=== PATIENT | male | born 1985 | race Caucasian/White ===

== ENCOUNTER 2017-06-09 17:04 | Emergency (ER) | payer SELFPAY ==
[~2017-06-09] VITALS: Ht 182.9 cm; Wt 90.0 kg
[~2017-06-09 17:04] MED LIST: DICL-86 PO; Z.0.NO CURRENT MEDS
[2017-06-09 17:06] VITALS: BP 137/91; PULSE 96; RESP 16; TEMP 98.4; O2SAT 98
[2017-06-09 20:31] LABS: AUTOMATED NEUTROPHIL # 4.3 TH/MM3 (1.8-7.7); BASOPHIL # 0.1 TH/MM3 (0-0.2); BASOPHIL % 0.9 % (0.0-2.0); EOSINOPHIL # 0.4 TH/MM3 (0-0.4); EOSINOPHIL % 6.2 % (0.0-4.0); HEMO FLAGS DIFF FINAL; LYMPH % 22.9 % (9.0-44.0); LYMPHOCYTE # 1.5 TH/MM3 (1.0-4.8); MEAN CELL VOLUME 91.4 FL (80.0-100.0); MEAN CORPUSCULAR HEMOGLOBIN 30.2 PG (27.0-34.0); MONO % 6.9 % (0.0-8.0); NEUT % 63.1 % (16.0-70.0); PLATELET COUNT 190 TH/MM3 (150-450); RED BLOOD COUNT 4.71 MIL/MM3 (4.50-5.90); RED CELL DISTRIBUTION WIDTH 13.7 % (11.6-17.2); WHITE BLOOD COUNT 6.7 TH/MM3 (4.0-11.0)
[2017-06-09 20:48] LABS: ALT (GPT) 43 U/L (12-78)
[2017-06-09 20:51] LABS: ALKALINE PHOSPHATASE 65 U/L (45-117); TOTAL BILIRUBIN ADULT 0.4 MG/DL (0.2-1.0)
[2017-06-09 20:52] LABS: ANION GAP 9 MEQ/L (5-15); AST (GOT) 31 U/L (15-37); BICARBONATE 25.4 MEQ/L (21.0-32.0); BLOOD UREA NITROGEN 13 MG/DL (7-18); CHLORIDE 108 MEQ/L (98-107); GLOMERULAR FILTRATION RATE 85 ML/MIN (>89); POTASSIUM 4.1 MEQ/L (3.5-5.1); SODIUM (NA) 142 MEQ/L (136-145)
[2017-06-09 20:55] LABS: ACETAMINOPHEN LESS THAN 2.0 MCG/ML (10.0-30.0); ALCOHOL LESS THAN 3 MG/DL (0-5)
--- NOTE | 2017-06-09 21:10 | PD ---
HPI Chief Complaint: Suicide Ideation/Attempt Time Seen by Provider: 20:46 Travel History International Travel<30 days: No Contact w/Intl Traveler<30days: No Traveled to known affect area: No History of Present Illness HPI 32-year-old male presents to the emergency Department voluntarily for psychiatric evaluation. Patient states that he's been feeling suicidal. He states that he attempted to kill himself by huffing a can of dust spray today. He states he did this around 3:30 this afternoon. Patient reports using marijuana, but does report a history of illicit drug use. He states he has never injected drugs. He states that his life is not going well with issues with his job and he is feeling depressed and suicidal. Patient denies any other medical history. He is not currently taking any prescribed medications. No other complaints. PFSH Past Medical History Autoimmune Disease: Yes Hiatal Hernia: Yes (BILAT SURG AN ) Integumentary: Yes (PSORIASIS) Social History Alcohol Use: Yes Tobacco Use: Yes Substance Use: Yes (POLYSUBSTANCE) Allergies-Medications (Allergen,Severity, Reaction): Coded Allergies: No Known Allergies (Verified , 06/09/17) Reported Meds & Prescriptions Reported Meds & Active Scripts Active Voltaren (Diclofenac Sodium) 75 Mg Tabec 75 Mg PO BID Reported No Current Meds (Miscellaneous Medication) Misc Review of Systems Except as stated in HPI: all other systems reviewed are Neg Physical Exam Narrative GENERAL: Well-nourished, well-developed male patient, ambulatory. Afebrile. SKIN: Focused skin assessment warm/dry. HEAD: Normocephalic. Atraumatic. EYES: No scleral icterus. No injection or drainage. NECK: Supple, trachea midline. No JVD or lymphadenopathy. CARDIOVASCULAR: Regular rate and rhythm without murmurs, gallops, or rubs. RESPIRATORY: Breath sounds equal bilaterally. No accessory muscle use. Lungs sounds are clear to auscultation. GASTROINTESTINAL: Abdomen soft, non-tender, nondistended. MUSCULOSKELETAL: No cyanosis, or edema. PSYCHIATRIC: No delusional thought processes. No hallucinations. Data Data Last Documented VS Vital Signs Date Time Temp Pulse Resp B/P (MAP) Pulse Ox O2 Delivery O2 Flow Rate FiO2 06/09/17 21:51 56 18 118/71 (87) Room Air 06/09/17 17:06 98.4 98 Orders Orders Complete Blood Count With Diff (06/09/17 19:51) Comprehensive Metabolic Panel (06/09/17 19:51) Urinalysis - C+S If Indicated (06/09/17 19:51) Psych Screen (06/09/17 19:51) Drug Screen, Random Urine (06/09/17 19:51) Alcohol (Ethanol) (06/09/17 19:51) Salicylates (Aspirin) (06/09/17 19:51) Tylenol (Acetaminophen) (06/09/17 19:51) Call Poison Control (06/09/17 21:06) Electrocardiogram (06/09/17 ) Electrocardiogram (06/10/17 02:00) Labs Laboratory Tests Test 06/09/17 20:05 White Blood Count 6.7 TH/MM3 Red Blood Count 4.71 MIL/MM3 Hemoglobin 14.2 GM/DL Hematocrit 43.0 % Mean Corpuscular Volume 91.4 FL Mean Corpuscular Hemoglobin 30.2 PG Mean Corpuscular Hemoglobin Concent 33.0 % Red Cell Distribution Width 13.7 % Platelet Count 190 TH/MM3 Mean Platelet Volume 8.4 FL Neutrophils (%) (Auto) 63.1 % Lymphocytes (%) (Auto) 22.9 % Monocytes (%) (Auto) 6.9 % Eosinophils (%) (Auto) 6.2 % Basophils (%) (Auto) 0.9 % Neutrophils # (Auto) 4.3 TH/MM3 Lymphocytes # (Auto) 1.5 TH/MM3 Monocytes # (Auto) 0.5 TH/MM3 Eosinophils # (Auto) 0.4 TH/MM3 Basophils # (Auto) 0.1 TH/MM3 CBC Comment DIFF FINAL Differential Comment Blood Urea Nitrogen 13 MG/DL Creatinine 1.01 MG/DL Random Glucose 119 MG/DL Total Protein 6.7 GM/DL Albumin 3.6 GM/DL Calcium Level 8.7 MG/DL Alkaline Phosphatase 65 U/L Aspartate Amino Transf (AST/SGOT) 31 U/L Alanine Aminotransferase (ALT/SGPT) 43 U/L Total Bilirubin 0.4 MG/DL Sodium Level 142 MEQ/L Potassium Level 4.1 MEQ/L Chloride Level 108 MEQ/L Carbon Dioxide Level 25.4 MEQ/L Anion Gap 9 MEQ/L Estimat Glomerular Filtration Rate 85 ML/MIN Salicylates Level LESS THAN 1.7 MG/DL Acetaminophen Level LESS THAN 2.0 MCG/ML Ethyl Alcohol Level LESS THAN 3 MG/DL MDM Medical Decision Making Medical Screen Exam Complete: Yes Emergency Medical Condition: Yes Medical Record Reviewed: Yes Differential Diagnosis depression versus anxiety versus suicidal ideation versus polysubstance abuse Narrative Course 32-year-old male presents to the emergency department for evaluation of feeling suicidal and depressed. He states that he huffed a can of dust spray today in an attempt to kill himself. He denies any other attempt to hurt himself. I talked to the RN take care of the patient and she will contact poison control. CBC, CMP, salicylate level, Tylenol level, urine drug screen are ordered and pending. CBC is unremarkable. CMP shows no acute abnormality. Salicylate level is less than 1.7. Tylenol level less than 2.0. Alcohol level is less than 3. Poison control was notified and recommended observation for 8 hours should have an ingestion which would be 11:30 tonight. They also recommended EKG now and EKG in 4 hours. Orders are placed. EKG shows sinus rhythm with first-degree AV block, heart rate 60, no acute ST changes. Repeat EKG will be done at 0200. Upon no acute abnormalities, the patient will be medically cleared for psychiatric screening and disposition. Mental health screening discussed with the patient. Psychiatric screen ordered. Diagnosis Primary Impression: Depression Qualified Codes: F32.9 - Major depressive disorder, single episode, unspecified Additional Impression: Suicidal ideation Additional Instructions: Patient is medically cleared for psychiatric screening and disposition. Condition: Stable WilverCecilia Jun 09, 2017 21:10
[2017-06-09 21:51] VITALS: BP 118/71; PULSE 56; RESP 18
[2017-06-10 02:24] VITALS: BP_SYST 11; BP_SYST 111; BP_DIAS 76; PULSE 57; RESP 17; O2SAT 97
[2017-06-10 11:01] VITALS: BP 155/108; PULSE 68; RESP 18; O2SAT 98
--- NOTE | 2017-06-10 12:04 | PD ---
History of Present Illness Chief Complaint: Suicide Ideation/Attempt Time Seen by Provider: 11:44 Travel History International Travel<30 Days: No Contact w/Intl Traveler<30days: No Known affected area: No Legal Status Legal Status: Voluntary History of Present Illness: 32-year-old male with 17 year history of polysubstance abuse. Patient reports he made a suicide attempt by huffing yesterday. He has been evaluated and observed overnight. At this time, the patient is stating he wants help with his drug abuse. He admits to a multiyear history of abusing ecstasy, cocaine, acid, and other illicit drugs. When asked about his suicidal ideation or plan at this time, the patient states he wants help with his drug abuse and does not truly wish to . He does consider his huffing yesterday to be a suicide attempt. Patient's problems with his job and in other areas of his life appear to be related to his drug abuse. This physician feels there is not a major mental illness diagnosis that supersedes the patient's problem with drugs. PFSH Past Medical History Autoimmune Disease: Yes Hiatal Hernia: Yes (BILAT SURG AN ) Integumentary: Yes (PSORIASIS) Psychiatric History Psychiatric History Hx Psychiatric Treatment: NO PREVIOUS TREATMENT. History of Inpatient Treatment: No Guns or firearms in home: No Social History Hx Alcohol Use: Yes Hx Tobacco Use: Yes Hx Substance Use: Yes (POLYSUBSTANCE) Substance Use Type: Marijuana, Amphetamines-Stimulants, Prescription Medications, Huffing, Synth Opiates-Pain Pills Hx of Substance Use Treatment: No Allergies-Medications (Allergen,Severity, Reaction): Coded Allergies: No Known Allergies (Verified , 06/09/17) Reported Meds & Prescriptions Reported Meds & Active Scripts Active Voltaren (Diclofenac Sodium) 75 Mg Tabec 75 Mg PO BID Reported No Current Meds (Miscellaneous Medication) Misc Review of Systems Except as stated in HPI: all other systems reviewed are Neg Exam Alert: Yes [facility]: Person, Place, Date, Situation Mood: Calm Affect: Appropriate Speech: Clear, Logical Eye Contact: Normal Memory Intact: Immediate, Recent, Remote Suicidal: Ideation Insight/Judgement Adequate MDM Medical Decision Making Medical Record Reviewed: Yes Assessment/Plan Medical record reviewed, patient interviewed at bedside and case discussed with nurse Scales. Patient is felt to be at high risk for self-harm but continues to have a primary problem with drugs as opposed to any other psychiatric disorder. This physician has placed a call to psychiatry and chapter relations administrator Nitesh Santana for further discussion. This physician also called the medical device sales representative, Dr. Schultz for consultation. Both this physician and Dr. Schultz feel the patient's primary issue remains his drug abuse. The fact that the patient wants help with his drug abuse indicates he is not primarily suffering from suicidality or some other major mental illness. Therefore, the patient is being referred, with transportation, to [facility]. As this facility is not licensed for drug detox and rehabilitation, [facility] remains the proper treatment facility. Furthermore, the patient has a much better chance of being admitted there if he goes there and presents himself and person. This physician is aware the patient remains at high risk for self-harm if he does not feel he is getting what he wants. However, this risk is unavoidable and unpredictable and unpredictable and cannot be the only determining factor in his disposition. Orders Orders Complete Blood Count With Diff (06/09/17 19:51) Comprehensive Metabolic Panel (06/09/17 19:51) Urinalysis - C+S If Indicated (06/09/17 19:51) Psych Screen (06/09/17 19:51) Drug Screen, Random Urine (06/09/17 19:51) Alcohol (Ethanol) (06/09/17 19:51) Salicylates (Aspirin) (06/09/17 19:51) Tylenol (Acetaminophen) (06/09/17 19:51) Call Poison Control (06/09/17 21:06) Electrocardiogram (06/09/17 ) Electrocardiogram (06/10/17 02:00) Diet Regular Basic (06/10/17 Breakfast) Diet Regular Basic (06/10/17 Lunch) Results Vital Signs Date Time Temp Pulse Resp B/P (MAP) Pulse Ox O2 Delivery O2 Flow Rate FiO2 06/10/17 11:01 68 18 155/108 (124) 98 Room Air 06/10/17 02:24 57 17 111/76 (88) 97 Room Air 06/09/17 21:51 56 18 118/71 (87) Room Air 06/09/17 17:06 98.4 96 16 137/91 (106) 98 Laboratory Tests Test 06/09/17 20:05 White Blood Count 6.7 Red Blood Count 4.71 Hemoglobin 14.2 Hematocrit 43.0 Mean Corpuscular Volume 91.4 Mean Corpuscular Hemoglobin 30.2 Mean Corpuscular Hemoglobin Concent 33.0 Red Cell Distribution Width 13.7 Platelet Count 190 Mean Platelet Volume 8.4 Neutrophils (%) (Auto) 63.1 Lymphocytes (%) (Auto) 22.9 Monocytes (%) (Auto) 6.9 Eosinophils (%) (Auto) 6.2 Basophils (%) (Auto) 0.9 Neutrophils # (Auto) 4.3 Lymphocytes # (Auto) 1.5 Monocytes # (Auto) 0.5 Eosinophils # (Auto) 0.4 Basophils # (Auto) 0.1 CBC Comment DIFF FINAL Differential Comment Blood Urea Nitrogen 13 Creatinine 1.01 Random Glucose 119 Total Protein 6.7 Albumin 3.6 Calcium Level 8.7 Alkaline Phosphatase 65 Aspartate Amino Transf (AST/SGOT) 31 Alanine Aminotransferase (ALT/SGPT) 43 Total Bilirubin 0.4 Sodium Level 142 Potassium Level 4.1 Chloride Level 108 Carbon Dioxide Level 25.4 Anion Gap 9 Estimat Glomerular Filtration Rate 85 Salicylates Level LESS THAN 1.7 Acetaminophen Level LESS THAN 2.0 Ethyl Alcohol Level LESS THAN 3 Diagnosis Primary Impression: Polysubstance abuse Additional Instructions: Patient is medically cleared for psychiatric screening and disposition. Condition: Stable Dmitri Miner MD Jun 10, 2017 12:04
--- NOTE | 2017-06-10 21:19 | EKG ---
Date Performed: 06/10/2017 Time Performed: 02:16:58 PTAGE: 32 years EKG: SINUS BRADYCARDIA WITH FIRST DEGREE AV BLOCK POSSIBLE LEFT ATRIAL ENLARGEMENT ABNORMAL ECG PREVIOUS TRACING : 06/09/2017 21.58 Compared to prior tracing no significant change DOCTOR: Arturo Quintero Interpretating Date/Time 06/10/2017 21:18:06
--- NOTE | 2017-06-10 21:29 | EKG ---
Date Performed: 06/09/2017 Time Performed: 21:58:10 PTAGE: 32 years EKG: Sinus rhythm WITH MARKED SINUS ARRHYTHMIA WITH FIRST DEGREE AV BLOCK ABNORMAL ECG NO PREVIOUS TRACING DOCTOR: Arturo Quintero Interpretating Date/Time 06/10/2017 21:27:35
== END 2017-06-10 16:11 | disposition home or self-care (01) ==
LOC: NEPJ 17:04
DX: F32.9 Major depressive disorder, single episode, unspecified (principal); R45.851 Suicidal ideations; F19.10 Other psychoactive substance abuse, uncomplicated; I44.0 Atrioventricular block, first degree
CPT/HCPCS: 80053; 80307; 85025; 93005; 99284

== ENCOUNTER 2017-06-10 21:12 | Emergency (ER) | payer OTHER ==
[~2017-06-10] VITALS: Ht 180.3 cm; Wt 91.0 kg
[2017-06-10 21:52] VITALS: BP 143/83; PULSE 81; RESP 16; TEMP 98; O2SAT 98
[2017-06-10 22:25] LABS: ANION GAP 9 MEQ/L (5-15); AST (GOT) 24 U/L (15-37); BICARBONATE 24.2 MEQ/L (21.0-32.0); BLOOD UREA NITROGEN 14 MG/DL (7-18); CHLORIDE 108 MEQ/L (98-107); GLOMERULAR FILTRATION RATE 69 ML/MIN (>89); POTASSIUM 3.7 MEQ/L (3.5-5.1); SODIUM (NA) 141 MEQ/L (136-145)
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
[2017-06-10 22:26] LABS: ALCOHOL LESS THAN 3 MG/DL (0-5)
[2017-06-10 22:29] LABS: ALKALINE PHOSPHATASE 67 U/L (45-117); ALT (GPT) 47 U/L (12-78); TOTAL BILIRUBIN ADULT 0.7 MG/DL (0.2-1.0)
[2017-06-10 22:32] LABS: ACETAMINOPHEN LESS THAN 2.0 MCG/ML (10.0-30.0)
[2017-06-10 22:44] LABS: AUTOMATED NEUTROPHIL # 4.4 TH/MM3 (1.8-7.7); BASOPHIL # 0.1 TH/MM3 (0-0.2); BASOPHIL % 0.8 % (0.0-2.0); EOSINOPHIL # 0.5 TH/MM3 (0-0.4); EOSINOPHIL % 6.8 % (0.0-4.0); HEMATOCRIT 44.1 % (39.0-51.0); HEMO FLAGS DIFF FINAL; LYMPH % 27.6 % (9.0-44.0); LYMPHOCYTE # 2.1 TH/MM3 (1.0-4.8); MEAN CELL VOLUME 90.9 FL (80.0-100.0); MEAN CORPUSCULAR HEMOGLOBIN 30.3 PG (27.0-34.0); MEAN CORPUSCULAR HGB CONC 33.3 % (32.0-36.0); MONO % 6.6 % (0.0-8.0); NEUT % 58.2 % (16.0-70.0); PLATELET COUNT 220 TH/MM3 (150-450); RED BLOOD COUNT 4.86 MIL/MM3 (4.50-5.90); RED CELL DISTRIBUTION WIDTH 13.6 % (11.6-17.2); WHITE BLOOD COUNT 7.6 TH/MM3 (4.0-11.0)
--- NOTE | 2017-06-10 22:54 | PD ---
Data Data Last Documented VS Vital Signs Date Time Temp Pulse Resp B/P (MAP) Pulse Ox O2 Delivery O2 Flow Rate FiO2 06/11/17 02:25 67 17 129/75 (93) 98 Room Air 06/10/17 21:52 98.0 Orders Orders Complete Blood Count With Diff (06/10/17 21:35) Comprehensive Metabolic Panel (06/10/17 21:35) Psych Screen (06/10/17 21:35) Drug Screen, Random Urine (06/10/17 21:35) Alcohol (Ethanol) (06/10/17 21:35) Salicylates (Aspirin) (06/10/17 21:35) Tylenol (Acetaminophen) (06/10/17 21:35) Ibuprofen (Motrin) (06/11/17 00:30) Diet Regular Basic (06/11/17 Breakfast) Labs Laboratory Tests Test 06/10/17 21:42 06/10/17 21:43 Urine Opiates Screen NEG Urine Barbiturates Screen NEG Urine Amphetamines Screen NEG Urine Benzodiazepines Screen NEG Urine Cocaine Screen NEG Urine Cannabinoids Screen POS White Blood Count 7.6 TH/MM3 Red Blood Count 4.86 MIL/MM3 Hemoglobin 14.7 GM/DL Hematocrit 44.1 % Mean Corpuscular Volume 90.9 FL Mean Corpuscular Hemoglobin 30.3 PG Mean Corpuscular Hemoglobin Concent 33.3 % Red Cell Distribution Width 13.6 % Platelet Count 220 TH/MM3 Mean Platelet Volume 9.3 FL Neutrophils (%) (Auto) 58.2 % Lymphocytes (%) (Auto) 27.6 % Monocytes (%) (Auto) 6.6 % Eosinophils (%) (Auto) 6.8 % Basophils (%) (Auto) 0.8 % Neutrophils # (Auto) 4.4 TH/MM3 Lymphocytes # (Auto) 2.1 TH/MM3 Monocytes # (Auto) 0.5 TH/MM3 Eosinophils # (Auto) 0.5 TH/MM3 Basophils # (Auto) 0.1 TH/MM3 CBC Comment DIFF FINAL Differential Comment Blood Urea Nitrogen 14 MG/DL Creatinine 1.20 MG/DL Random Glucose 109 MG/DL Total Protein 7.3 GM/DL Albumin 3.9 GM/DL Calcium Level 9.3 MG/DL Alkaline Phosphatase 67 U/L Aspartate Amino Transf (AST/SGOT) 24 U/L Alanine Aminotransferase (ALT/SGPT) 47 U/L Total Bilirubin 0.7 MG/DL Sodium Level 141 MEQ/L Potassium Level 3.7 MEQ/L Chloride Level 108 MEQ/L Carbon Dioxide Level 24.2 MEQ/L Anion Gap 9 MEQ/L Estimat Glomerular Filtration Rate 69 ML/MIN Salicylates Level LESS THAN 1.7 MG/DL Acetaminophen Level LESS THAN 2.0 MCG/ML Ethyl Alcohol Level LESS THAN 3 MG/DL MDM Supervised Visit with JAYY: No Narrative Course Patient seen and briefly examined by me, appears psychotic possibly from substance abuse. Basic labs reviewed and unremarkable. Patient has no complaints negrete to further medical workup at this time. He is medically cleared for psychiatric evaluation and disposition. Condition: Stable Irineo Zaldivar MD Jun 10, 2017 22:54
[2017-06-11] MEDS ORDERED: IBUPROFEN 600 MG TAB PO ONE (00:30)
[2017-06-11 02:25] VITALS: BP 129/75; PULSE 67; RESP 17; O2SAT 98
[2017-06-11 06:32] VITALS: BP 135/67; PULSE 67; RESP 16; O2SAT 99
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
--- NOTE | 2017-06-11 10:45 | PD ---
Physical Exam Narrative Patient was previously medically clear. Abbott act was lifted by psychiatrist. Patient denies any medical complaints or concerns. Denies any suicidal or homicidal ideations. Patient is reportedly going to [facility] for detox. Data Data Last Documented VS Vital Signs Date Time Temp Pulse Resp B/P (MAP) Pulse Ox O2 Delivery O2 Flow Rate FiO2 06/11/17 06:32 67 16 135/67 (89) 99 Room Air 06/10/17 21:52 98.0 Orders Orders Complete Blood Count With Diff (06/10/17 21:35) Comprehensive Metabolic Panel (06/10/17 21:35) Psych Screen (06/10/17 21:35) Drug Screen, Random Urine (06/10/17 21:35) Alcohol (Ethanol) (06/10/17 21:35) Salicylates (Aspirin) (06/10/17 21:35) Tylenol (Acetaminophen) (06/10/17 21:35) Ibuprofen (Motrin) (06/11/17 00:30) Diet Regular Basic (06/11/17 Breakfast) Diet Regular Basic (06/11/17 Lunch) Labs Laboratory Tests Test 06/10/17 21:42 06/10/17 21:43 Urine Opiates Screen NEG Urine Barbiturates Screen NEG Urine Amphetamines Screen NEG Urine Benzodiazepines Screen NEG Urine Cocaine Screen NEG Urine Cannabinoids Screen POS White Blood Count 7.6 TH/MM3 Red Blood Count 4.86 MIL/MM3 Hemoglobin 14.7 GM/DL Hematocrit 44.1 % Mean Corpuscular Volume 90.9 FL Mean Corpuscular Hemoglobin 30.3 PG Mean Corpuscular Hemoglobin Concent 33.3 % Red Cell Distribution Width 13.6 % Platelet Count 220 TH/MM3 Mean Platelet Volume 9.3 FL Neutrophils (%) (Auto) 58.2 % Lymphocytes (%) (Auto) 27.6 % Monocytes (%) (Auto) 6.6 % Eosinophils (%) (Auto) 6.8 % Basophils (%) (Auto) 0.8 % Neutrophils # (Auto) 4.4 TH/MM3 Lymphocytes # (Auto) 2.1 TH/MM3 Monocytes # (Auto) 0.5 TH/MM3 Eosinophils # (Auto) 0.5 TH/MM3 Basophils # (Auto) 0.1 TH/MM3 CBC Comment DIFF FINAL Differential Comment Blood Urea Nitrogen 14 MG/DL Creatinine 1.20 MG/DL Random Glucose 109 MG/DL Total Protein 7.3 GM/DL Albumin 3.9 GM/DL Calcium Level 9.3 MG/DL Alkaline Phosphatase 67 U/L Aspartate Amino Transf (AST/SGOT) 24 U/L Alanine Aminotransferase (ALT/SGPT) 47 U/L Total Bilirubin 0.7 MG/DL Sodium Level 141 MEQ/L Potassium Level 3.7 MEQ/L Chloride Level 108 MEQ/L Carbon Dioxide Level 24.2 MEQ/L Anion Gap 9 MEQ/L Estimat Glomerular Filtration Rate 69 ML/MIN Salicylates Level LESS THAN 1.7 MG/DL Acetaminophen Level LESS THAN 2.0 MCG/ML Ethyl Alcohol Level LESS THAN 3 MG/DL MDM Supervised Visit with JAYY: No Diagnosis Primary Impression: Cocaine abuse Additional Instruction: Follow-up at [facility] for detox. Return to the emergency department if symptoms get worse. Disposition: 01 DISCHARGE HOME Condition: Stable Maurice Hairston Jun 11, 2017 10:44
[2017-06-11 10:51] VITALS: BP 170/90; PULSE 68; RESP 16; TEMP 98.2; O2SAT 98
[2017-06-11 11:02] VITALS: BP 140/68
[2017-06-11 11:04] VITALS: BP 140/68; PULSE 140
[2017-06-11 11:26] VITALS: BP 140/68
== END 2017-06-11 11:41 | disposition home or self-care (01) ==
LOC: NEPJ 21:12
DX: F14.10 Cocaine abuse, uncomplicated (principal)
CPT/HCPCS: 80053; 80307; 85025; 99284

== ENCOUNTER 2017-07-27 12:19 | Emergency (ER) | payer SELFPAY ==
[~2017-07-27] VITALS: Ht 182.9 cm; Wt 87.0 kg
[2017-07-27 12:23] VITALS: BP 133/74; PULSE 57; RESP 16; TEMP 97.6; O2SAT 100
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
[2017-07-27] MEDS ORDERED: ROBA500T PO (12:56)
[2017-07-27] MEDS ORDERED: IBUP1TAB7 PO (12:56)
[2017-07-27] MEDS ORDERED: MEDR4PAK PO (12:57)
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
[2017-07-27] MEDS ORDERED: KETOROLAC TROMETHAMINE 60 MG/2 ML (IM) VIAL IM ONE (13:00)
[2017-07-27] MEDS ORDERED: ORPHENADRINE INJ 60 MG/2 ML AMP IM ONE (13:00)
== END 2017-07-27 14:16 | disposition home or self-care (01) ==
LOC: NEPK 12:19
DX: S39.012A Strain of muscle, fascia and tendon of lower back, initial encounter (principal); M54.42 Lumbago with sciatica, left side; Z72.0 Tobacco use; Z79.899 Other long term (current) drug therapy; V49.9XXA Car occupant (driver) (passenger) injured in unspecified traffic accident, initial encounter
CPT/HCPCS: 96372; 99284; J1885; J2360